=== PATIENT | male | born 1950 | race Caucasian/White ===

== ENCOUNTER → 2016-05-21 | Outpatient (CLI) | payer MEDICARE ==
[~2016-05-21] MED LIST: ABILIFY 15MG TA15 MG PO; ADDERALL30 MG PO; ADVIL200 MG PO; ALEVE 220MG220 MG PO; ASPIRIN 81M81 MG/TA2 PO; CALCIUM/MAG/ZINC PO; CIALIS5 MG PO; FISH OIL 1000MG1 CAP PO; KLONOPIN 1MG1 MG PO; LORTAB 10/500 51 TAB PO; MORPHINE 1515 MG/TAB PO; MULTIPLE VITAMI1 CAP PO; MULTIPLE VITAMI1 TA5 PO; NEURONTIN100 MG/CAP PO; NEURONTIN300 MG/CAP PO; NORCO 325 MG-101 TAB PO; NORCO 325 MG-7.1 TAB PO; RISPERDAL 0.5M0.5 MG PO; VIAGRA100 M1 PO
== END ==
LOC: BHSO 10:55
DX: F20.89 Other schizophrenia (principal)

== ENCOUNTER → 2016-06-02 | Outpatient (CLI) | payer OTHER, MEDICARE | LOC: MHCPAIN 10:49 | DX: G89.29 Other chronic pain (principal); M47.817 Spondylosis without myelopathy or radiculopathy, lumbosacral region; M96.1 Postlaminectomy syndrome, not elsewhere classified | CPT/HCPCS: G0463 ==

== ENCOUNTER 2016-06-07 08:47 | Outpatient (CLI) | payer MEDICARE ==
[2016-06-07] VITALS (8 sets, daily range): BP systolic 90–127; BP diastolic 42–78; PULSE 50–72; TEMP 97.6
[~2016-06-07] VITALS: Ht 190.5 cm; Wt 72.7 kg
== END 2016-06-07 13:00 | disposition home or self-care (01) ==
LOC: COL.RAD 08:47
DX: M51.26 Other intervertebral disc displacement, lumbar region (principal)
CPT/HCPCS: Q9965

== ENCOUNTER → 2016-06-14 | Outpatient (CLI) | payer MEDICARE | LOC: MHCPAIN 09:51 | DX: G89.29 Other chronic pain (principal); M47.817 Spondylosis without myelopathy or radiculopathy, lumbosacral region; M96.1 Postlaminectomy syndrome, not elsewhere classified; F17.210 Nicotine dependence, cigarettes, uncomplicated | CPT/HCPCS: G0463 ==

== ENCOUNTER → 2016-06-24 | Outpatient (CLI) | payer MEDICARE, OTHER | LOC: MHCPAIN 12:59 | DX: M47.817 Spondylosis without myelopathy or radiculopathy, lumbosacral region (principal) ==

== ENCOUNTER → 2016-08-13 | Outpatient (CLI) | payer MEDICARE, OTHER | LOC: BHSO 10:55 | DX: F20.9 Schizophrenia, unspecified (principal) ==

== ENCOUNTER → 2016-08-13 | Outpatient (CLI) | payer MEDICARE, OTHER | LOC: MHCPAIN 12:28 | DX: G89.29 Other chronic pain (principal); M47.817 Spondylosis without myelopathy or radiculopathy, lumbosacral region; M96.1 Postlaminectomy syndrome, not elsewhere classified; F17.210 Nicotine dependence, cigarettes, uncomplicated | CPT/HCPCS: G0463 ==

== ENCOUNTER → 2016-08-19 | Outpatient (CLI) | payer MEDICARE, OTHER | LOC: MHCPAIN | DX: M47.817 Spondylosis without myelopathy or radiculopathy, lumbosacral region (principal) ==

== ENCOUNTER → 2016-09-01 | Outpatient (CLI) | payer MEDICARE, OTHER | LOC: MHCPAIN 11:53 | DX: G89.29 Other chronic pain (principal); M47.817 Spondylosis without myelopathy or radiculopathy, lumbosacral region; M96.1 Postlaminectomy syndrome, not elsewhere classified; F17.210 Nicotine dependence, cigarettes, uncomplicated | CPT/HCPCS: G0463 ==

== ENCOUNTER → 2016-11-12 | Outpatient (CLI) | payer MEDICARE, OTHER | LOC: BHSO 10:42 | DX: F20.9 Schizophrenia, unspecified (principal) ==

== ENCOUNTER → 2017-03-25 | Outpatient (CLI) | payer MEDICARE, MEDICAID | LOC: BHSO 10:58 | DX: F20.9 Schizophrenia, unspecified (principal) | CPT/HCPCS: G0463 ==

== ENCOUNTER → 2017-09-26 | Outpatient (CLI) | payer MEDICARE, MEDICAID, OTHER | LOC: BHSO 13:26 | DX: F20.9 Schizophrenia, unspecified (principal) ==